=== PATIENT | male | born 1950 | race Caucasian/White ===

== ENCOUNTER 2017-11-29 07:12 | Day surgery (SDC) | payer MEDICARE, SELFPAY ==
[2017-11-29 07:46] VITALS: BP 140/77; PULSE 57; RESP 15; TEMP 36; O2SAT 100; BMI 27.0
[2017-11-29] MEDS: PROPARACAINE 0.5% OPHTH SOL 2 DROPS EYE-OP (07:56)
[2017-11-29] MEDS: CATARACT EYE COMPOUND (10 DROPS/SYRINGE) 3 DROPS EYE-OP (07:57)
--- NOTE | 2017-11-29 09:12 | PM.PREOP ---
Pre-operative Note Interval Note Changes: No
--- NOTE | 2017-11-29 09:12 | PM.OP.1 ---
Operative Date/Time/Diagnoses Pre-op diagnosis: Nuclear cataract right eye Procedure & Clinicians Procedure: Cataract Surgery Same procedure as scheduled: Yes Surgeon: Roberto Quigley Anesthesia Type: MAC +/- and Sedation Operative Notes Procedure in detail: Patient brought to the operating suite. Tetracaine drops placed in the right eye. Marking instrument was used to tristan the verticle and horizontal meridian. Patient was prepped and draped in sterile manner. Wire lid speculum was placed in the eye. marking instrument was used to tristan the 90 degree meridian. Betadine drops were placed on the eye. This was irrigated. Lidocaine jelly was placed on the eye. A paracentesis port was created with a side-port blade. 0.1 mL 1% preservative free lidocaine was injected into the anterior chamber. The anterior chamber was deepened with viscoelastic. 2.6 mm keratome was used to create a temporal clear corneal incision. Cystotome and Utrata forceps were used to create continuous tear capsulorrhexis. Balanced salt solution was used to hydro dissect the nucleus. The phacoemulsification handpiece was inserted and the nucleus was removed using the stop and chop technique. The irrigation aspiration handpiece was inserted and the remaining cortex was removed. Anterior chamber was deepened with viscoelastic. An Prince [id number] intraocular lens with a power of 10.5 was injected into the capsular bag. Irrigation aspiration handpiece was inserted and the remaining viscoelastic was removed. The lens was rotated to the 90 degree meridian. Incision was hydrated with balanced salt solution and found to be leak free with pressure with Weck-Faith sponges. 0.1 mL Vigamox injected anterior chamber. 0.3 mL Kenalog 10 mg was injected subconjunctivally. Lid speculum was removed. The patient left the operating room in excellent condition. Complications: none Condition: stable Disposition: same day surgery
--- NOTE | 2017-11-29 09:13 | P.OP.PRE_ITS ---
Pre-operative Note Interval Note Changes: No
[2017-11-29] MEDS: PHENYLEPHRINE/LIDOCAINE VIAL (OR) 0.2 ML EYE-OP (09:26)
[2017-11-29] MEDS: LIDOCAINE JELLY 2% 5 ML 1 APPLIC TOP (09:27)
[2017-11-29] MEDS: TRIAMCINOLONE 50 MG/5 ML VIAL INJ (09:27)
[2017-11-29] MEDS: MOXIFLOXACIN OPHTH DROPS 3 ML BOTTLE 2 DROPS INJ (09:27)
[2017-11-29] MEDS: CHONDROIDTIN/SOD HYALURONATE 1.05 ML SYRINGE INTRAOCULA (09:27)
[2017-11-29] MEDS: BALANCED SALT IRRIG SOLN NO.2 500 ML, EPINEPHrine 1 MG IRR (09:28)
[2017-11-29] MEDS: TETRACAINE 0.5% OPHTH DROPS 15 ML 2 DROPS EYE-RIGHT (09:28)
[2017-11-29 09:51] VITALS: BP 111/67; PULSE 51; RESP 16; TEMP 36.3; O2SAT 99
== END 2017-11-29 09:57 | disposition home or self-care (01) ==
LOC: OR 07:15
PROVIDERS: Family Provider Family Medicine; PCP Family Medicine; Visit Provider Ophthalmology
DX: H25.11 Age-related nuclear cataract, right eye (principal)
CPT/HCPCS: J0171; J2250; J3010; J3301; V2787

== ENCOUNTER 2017-12-13 08:25 | Day surgery (SDC) | payer MEDICARE, SELFPAY ==
[2017-12-13] MEDS: PROPARACAINE 0.5% OPHTH SOL 2 DROPS EYE-OP (08:52)
[2017-12-13 08:55] VITALS: BP 143/78; PULSE 43; RESP 16; TEMP 36.6; O2SAT 100; BMI 27.0
[2017-12-13] MEDS: CATARACT EYE COMPOUND (10 DROPS/SYRINGE) 3 DROPS EYE-OP (09:00)
--- NOTE | 2017-12-13 09:47 | P.OP.PRE_ITS ---
Pre-operative Note Interval Note Changes: No
--- NOTE | 2017-12-13 09:47 | PM.PREOP ---
Pre-operative Note Interval Note Changes: No
--- NOTE | 2017-12-13 09:47 | PM.OP.1 ---
Operative Date/Time/Diagnoses Pre-op diagnosis: Nuclear Cataract Left eye Post-op diagnosis: same Procedure & Clinicians Surgeon: Roberto Quigley Anesthesia Type: MAC +/- and Sedation Operative Notes Procedure in detail: Patient brought to the operating suite. Tetracaine drops placed in the left eye. The marking instrument was used to tristan the verticle and horizontal meridian. Patient was prepped and draped in sterile manner. Wire lid speculum was placed in the eye. The marking instrument was used to tristan the 80 degree meridian. Betadine drops were placed on the eye. This was irrigated. Lidocaine jelly was placed on the eye. A paracentesis port was created with a side-port blade. 0.1 mL 1% preservative free lidocaine was injected into the anterior chamber. The anterior chamber was deepened with viscoelastic. 2.6 mm keratome was used to create a temporal clear corneal incision. Cystotome and Utrata forceps were used to create continuous tear capsulorrhexis. Balanced salt solution was used to hydro dissect the nucleus. The phacoemulsification handpiece was inserted and the nucleus was removed using the stop and chop technique. The irrigation aspiration handpiece was inserted and the remaining cortex was removed. Anterior chamber was deepened with viscoelastic. An Prince [id number] intraocular lens with a power of 11.5 was injected into the capsular bag. Irrigation aspiration handpiece was inserted and the remaining viscoelastic was removed. The lens was rotated to the 80 degree meridian. Incision was hydrated with balanced salt solution and found to be leak free with pressure with Weck-Faith sponges. 0.1 mL Vigamox injected anterior chamber. 0.3 mL Kenalog 10 mg was injected subconjunctivally. Lid speculum was removed. The patient left the operating room in excellent condition. Complications: none Condition: stable Disposition: same day surgery
[2017-12-13] MEDS: LIDOCAINE JELLY 2% 5 ML 1 APPLIC TOP (09:56)
[2017-12-13] MEDS: CHONDROIDTIN/SOD HYALURONATE 1.05 ML SYRINGE INTRAOCULA (09:56)
[2017-12-13] MEDS: PHENYLEPHRINE/LIDOCAINE VIAL (OR) 0.2 ML EYE-OP (09:57)
[2017-12-13] MEDS: TETRACAINE 0.5% OPHTH DROPS 15 ML 2 DROPS EYE-LEFT (09:57)
[2017-12-13] MEDS: MOXIFLOXACIN OPHTH DROPS 3 ML BOTTLE 2 DROPS INJ (09:57)
[2017-12-13] MEDS: TRIAMCINOLONE 50 MG/5 ML VIAL INJ (09:58)
[2017-12-13] MEDS: BALANCED SALT IRRIG SOLN NO.2 500 ML, EPINEPHrine 1 MG IRR (09:59)
[2017-12-13] MEDS: PROPARACAINE 0.5% OPHTH SOL 2 DROPS EYE-LEFT (10:00)
[2017-12-13 10:11] VITALS: BP 116/66; PULSE 45; RESP 16; TEMP 36; O2SAT 93
== END 2017-12-13 10:25 ==
PROVIDERS: PCP Family Medicine; Visit Provider Ophthalmology
DX: H25.12 Age-related nuclear cataract, left eye (principal)
CPT/HCPCS: J0171; J2250; J3010; J3301; V2787

== ENCOUNTER → 2019-11-23 09:12 | Outpatient (CLI) | payer MEDICARE, SELFPAY ==
[2019-11-24 21:52] LABS: COVID19 Sendout Not Detected (Not Detect)
== END ==
PROVIDERS: PCP Family Medicine; Visit Provider Physician Assistant
DX: Z01.812 Encounter for preprocedural laboratory examination (principal)
CPT/HCPCS: 87635

== ENCOUNTER 2019-11-26 14:06 | Day surgery (SDC) | payer MEDICARE, SELFPAY ==
--- NOTE | 2019-11-26 | PATH_ITS ---
[facility] Accession Number: [id number] . 01 Material submitted: . rectum - RECTAL POLYP 8 MM . 01 Clinical history: . SDC . 02 Diagnosis: Rectal Polyp, 8 mm, Biopsy: Hyperplastic polyp. Negative for dysplasia or malignancy. Additional step sections examined. MRV 11/29/2019 1314 Local . 02 Electronically signed: . Chuck Osuna MD, PhD, Pathologist NPI- [id number] . 01 Gross description: . The specimen is received in formalin, labeled rectal polyp and consists of three huitron-pink fragments of soft tissue, measuring 0.5 x 0.5 x 0.2 cm in aggregate. The specimen is entirely submitted in cassette A1. ([id number]) /[facility] 11/27/2019 1701 Local . 02 Pathologist provided ICD-10: K62.1 . 02 CPT . 917121 Performed at: 01 [facility] [address] [place] [address], [place], [place] [id number] MD Peter Jackson MD Phone: [phone] Performed at: 02 [facility] [address] [place], [place] [id number] MD Pamela Hoang MD Phone: [phone]
--- NOTE | 2019-11-26 12:49 | P.HP_ITS ---
History of Present Illness History of Present Illness Date Patient Seen: 11/26/19 Chief complaint: [facility] [place] Narrative: 68 Years Old Male comes in today for consideration of a screening colonoscopy. Has had 2-3 lifetime colonoscopies. Last colonoscopy report from 2008 states that he has a history of a colorectal polyp, pathology not available at time of dictation, patient cannot remember if this is true. Patient recalls that the colonoscopy occurred in [place]. Due for recall. There have been no lower GI symptoms suggesting disease such as change in bowel habits, bleeding, abdominal pain or anemia. He does have a significant family history of colon cancer. His father of colon cancer as well as both of his grandfathers. All of them had colon cancer after age 50. Patient is anticoagulated on Pradaxa secondary to atrial fibrillation, underwent successful ablation in 2013, has been rate controlled and anticoagulated since that time. Echo on 03/11/2014 revealed an ejection fraction of 55 to 60%. Overall health issues have been stable, including no major cardiac events for at least 6 weeks. Current Medications: 1) Flecainide Acetate 100 Mg Oral Tablet (Flecainide Acetate) .... Take one tablet by mouth every 12 hours, for heart rhythm control. 2) Pradaxa 150 Mg Oral Capsule (Dabigatran Etexilate Mesylate) .... Take one by mouth twice a day 3) Metoprolol Tartrate 25 Mg Oral Tablet (Metoprolol Tartrate) .... Take 1/2 tablet by mouth twice a day for blood pressure control. 4) Lisinopril 2.5 Mg Oral Tablet (Lisinopril) .... Take one by mouth every day 5) Pravastatin Sodium 40 Mg Oral Tablet (Pravastatin Sodium) .... Take 1 tablet by mouth once a day at bedtime, for cholesterol control. Allergies: No Known Drug Allergies Past Medical History: ATRIAL FIBRILLATION HYPERTENSION HYPERLIPIDEMIA HEARING LOSS, BILATERAL Ringing in the ears Ganglion cyst of left dorsal wrist PLANTAR FASCIITIS ) DJD of glenohumeral joint Back Pain EPICONDYLITIS, MEDIAL Strain of unspecified muscle, fascia and tendon at shoulder and upper arm level, left arm, initial encounter Past Surgical History: ablation L shoulder surgery nasal surgery Family History: Reviewed history from 05/09/2014 and no changes required: Father, PGF, MGF: Colon Cancer Mother: Diabetes Siblings: brother, colon polyps Social History: Reviewed history from 05/10/2014 and no changes required: Marital Status: Children: Occupation:Retired Household Members:spouse Richard Rey 09/20/50 Education: Alcohol drinks/day: 2/day Caffeine use/day: 1 Type of Exercise: rowing Exercise Times per Week: 7 Guns in home: yes Dental Care w/in 6 mos.: yes Sun Exposure: frequently Drug Use: never Patient History Family & Social History Social History: household members spouse Meds Home Medications and Allergies Home Medications Medication Instructions Recorded Confirmed Type metoprolol tartrate 50 mg PO BID #0 09/10/11 11/26/19 History dabigatran etexilate [Pradaxa] 150 mg PO BID 11/29/17 11/26/19 History lisinopril 20 mg PO DAILY 11/29/17 11/26/19 History pravastatin 20 mg PO DAILY 11/29/17 11/26/19 History Allergies Allergy/AdvReac Type Severity Reaction Status Date / Time No Known Drug Allergies Allergy Verified 11/26/19 14:45 Review of Systems Review of Systems ROS: Yes All systems reviewed with the patient and are negative except as otherwise documented Exam Narrative Exam Narrative: GENERAL: Alert and oriented, appearing stated age and in no acute distress. HEENT: Head normocephalic/atraumatic. Pupils equal, round, and reactive to light and accomodation. Extraocular muscles intact. Tympanic membranes clear. Nasal mucosa moist, septum midline. Oral mucosa moist, no lesions. Neck soft and supple, no lymphadenopathy. LUNGS: Clear to ausculation bilaterally, no wheezes, rhonchi or rales. CV: Normal S1 and S2 with regular rate and rhythm, no audible murmurs, rubs or gallops. ABDOMEN: Soft, non-tender, non-distended, no organomegaly. Positive bowel sounds. EXTREMITIES: No clubbing, cyanosis, or edema. NEURO: Cranial nerves II through XII grossly intact, no focal deficits. PSYCH: Alert and oriented x 3. SKIN: No concerning lesions. Assessment & Plan Assessment & Plan narrative: 1. History of colon polyps 2. Family history of colon cancer 3. Screening for colon cancer Plan for colonoscopy. The nature and character of the procedure as well as anticipated results were discussed. The possibility of not completing the procedure was also discussed. Possible complications including aspiration pneumonia, bleeding, perforation and reaction to medications either for sedation or preparation and missed lesions were discussed. Questions were answered and proceeding to the colonoscopy was elected. Informed consent signed. I sincerely appreciate the referral allowing me to participate in this patient's care. Please contact me with any questions or concerns. Patient is also anticoagulated, have coordinated care with cardiology and will have patient discontinue Pradaxa 48 hours prior to the procedure and restart 48 hours after procedure if there are no bleeding risks.
--- NOTE | 2019-11-26 12:50 | PM.OP.ENDO ---
Operative Date/Time/Diagnoses Date of procedure: 11/26/19 Procedure Notes SCOAP/Timeout: 3:28 p.m. Procedure in detail: ENDOSCOPIST: Jackie Marcial MD Sedation RN: Jessica Larose RN Sedation start time: 3:29 p.m. Sedation end time: 3:58 p.m. PROCEDURE: Colonoscopy with biopsy, cold INDICATIONS: 1. History of colon polyps 2. Family history of colon cancer 3. Screening for colon cancer 4. Anticoagulation management, on Pradaxa, has been held x 24 hours MEDICATION: Levsin 0.125 mg sublingual, incremental doses of Versed and fentanyl until appropriate level sedation achieved. ASA CLASS: 2 CECAL WITHDRAWAL TIME: 13 minutes COMPLICATIONS: None. EXTENT OF PROCEDURE: Cecum. QUALITY OF PREP: Good with portions of liquid stool. PROCEDURE: Prior to insertion of the colonoscope, a digital rectal examination was accomplished with circumferential palpation of the distal rectal mucosa without significant findings being noted. The high-definition colonoscope was passed into the rectum in the usual fashion and advanced over to the cecum without difficulty. The ileocecal valve, appendiceal stoma, and medial wall all could be inspected and no abnormalities were seen. ASCENDING COLON: As the colonoscope was withdrawn, care was taken to expose and inspect the haustral folds and no abnormalities were seen. HEPATIC FLEXURE: Normal, no polyps, diverticula or other abnormalities. TRANSVERSE COLON: Normal, no polyps, diverticula or other abnormalities. DESCENDING COLON: Severe diverticulosis, no polyps or other abnormalities. SIGMOID COLON: Severe diverticulosis, no polyps or other abnormalities RECTUM: An 8 mm polyp was seen and removed with cold biopsy forceps.. J maneuver was produced. There was no significant perianal disease. The J maneuver was broken. The remainder of the rectum was inspected and there was no external hemorrhoid disease. The scope was withdrawn. IMPRESSION: 1. Rectal polyp x1, 8 mm, removed with cold biopsy forceps 2. Diverticulosis, severe, left-sided PLAN: 1. Follow-up in clinic status post pathology results. The possibility of a missed lesion including a malignancy has been discussed with the patient previously. Potential alarm symptoms have been discussed and should be reported immediately. Post-procedure Follow up: weeks (2)
[2019-11-26 14:47] VITALS: BMI 29.0
[2019-11-26 14:53] VITALS: BP 131/83; PULSE 78; RESP 16; TEMP 36.4; O2SAT 98
[2019-11-26] MEDS: HYOSCYAMINE 0.125 MG TABLET PO (15:03)
[2019-11-26] MEDS: LACTATED RINGERS 1,000 ML 200 ML IV (15:04)
[2019-11-26] MEDS: MIDAZOLAM 5 MG/5 ML VIAL IV (15:29)
[2019-11-26] MEDS: fentaNYL 250 MCG/5 ML INJ IV (15:39)
[2019-11-26 16:02] VITALS: BP 115/74; PULSE 64; RESP 16; TEMP 36.4; O2SAT 98
[2019-11-26 16:07] VITALS: BP 146/97; PULSE 78; RESP 10; O2SAT 96
[2019-11-26 16:15] VITALS: BP 158/85; PULSE 61; RESP 17; TEMP 36; O2SAT 98
[2019-11-26 16:47] VITALS: BP 153/81; PULSE 61; RESP 17; TEMP 36.1; O2SAT 98
== END 2019-11-26 16:49 | disposition home or self-care (01) ==
PROVIDERS: PCP Family Medicine; Referring Provider Student in an Organized Health Care Education/Training Program; Visit Provider Student in an Organized Health Care Education/Training Program
PROC: 0DJD8ZZ Inspection of Lower Intestinal Tract, Via Natural or Artificial Opening Endoscopic (ICD-10-PCS; CPT 45378; principal; 2019-11-26 15:15)
DX: Z12.11 Encounter for screening for malignant neoplasm of colon (principal); Z80.0 Family history of malignant neoplasm of digestive organs; Z86.010 Personal history of colon polyps; Z79.01 Long term (current) use of anticoagulants; K57.30 Diverticulosis of large intestine without perforation or abscess without bleeding; K62.1 Rectal polyp
CPT/HCPCS: 45380; J2250; J3010

== ENCOUNTER → 2021-04-29 16:39 | Outpatient (CLI) | payer MEDICARE, SELFPAY ==
--- NOTE | 2021-04-29 16:42 | DI.RAD.S_ITS ---
PROCEDURE: XR KNEE RT 3V INDICATIONS: RIGHT KNEE PAIN TECHNIQUE: 3 views of the knee were acquired. COMPARISON: [facility], , KNEE 3V RIGHT, 03/06/2007, 11:22. FINDINGS: Bones: No acute fractures or dislocations. No suspicious bony lesions. Soft tissues: Small joint effusion. No suspicious soft tissue calcifications. IMPRESSION: No acute osseous abnormality. If the symptoms persist, consider cross sectional imaging such as MRI or CT for further assessment. Dictated by: Chuck Carrion M.D. on 04/29/2021 at 17:53 Approved by: Chuck Carrion M.D. on 04/29/2021 at 17:55
== END ==
PROVIDERS: PCP Family Medicine; Referring Provider Family Medicine; Visit Provider Family Medicine
DX: M25.561 Pain in right knee (principal)
CPT/HCPCS: 73562

== ENCOUNTER → 2021-05-16 09:45 | Outpatient (CLI) | payer MEDICARE, SELFPAY ==
--- NOTE | 2021-05-16 | DI.MRI.S_ITS ---
PROCEDURE: MR KNEE RT WO CON INDICATIONS: Pain in right knee TECHNIQUE: Noncontrast sagittal PD fast spin echo and T2 fast spin echo with fat saturation, sagittal 3-D FLASH with fat saturation; coronal T1 spin echo and PD fast spin echo with fat saturation, and axial PD fast spin echo with fat saturation through the knee. COMPARISON: [facility], CR, XR KNEE RT 3V, 04/29/2021, 16:36. FINDINGS: Image quality: Excellent. Menisci: There is complex tear of the body and posterior horn of the medial meniscus. There is horizontal tear versus intrasubstance degeneration of the anterior horn of the lateral meniscus. The meniscal root ligaments appear intact. Cruciate ligaments: The anterior cruciate ligament has striated appearance suggesting mucoid degeneration. Posterior cruciate ligament appears normal. Medial structures: The medial collateral ligament appears intact. The semimembranosus tendon insertions and meniscocapsular junction appear intact. Visualized portions of the pes anserinus tendons appear normal. No abnormal bursal fluid. Lateral structures: The lateral collateral ligament, long and short heads of the biceps femoris tendon appear intact. The popliteus tendon appears normal. Iliotibial band appears normal. Anterior structures: The quadriceps and patellar tendons appear intact. Patellar alignment is normal. No femoral trochlear dysplasia or ventral trochlear prominence. No edema in the infrapatellar fat pad. Bones and cartilage: No bone marrow contusions or fractures. There is chondromalacia with cartilage thinning and fibrillation, most pronounced in the medial femorotibial compartment where a full-thickness cartilage defect is noted in the weightbearing portion of medial femoral condyle (series 7, image 21). Joint space: There is small knee joint effusion. No Batres's cyst. Normal appearing synovial plicae are incidentally noted. IMPRESSION: 1. Complex tear of the body and posterior horn of the medial meniscus. 2. Horizontal tear versus intrasubstance degeneration involving the anterior horn of the lateral meniscus. 3. Mucoid degeneration of ACL. 4. 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 5. Small knee joint effusion. Dictated by: Sheridan Fleming M.D. on 05/18/2021 at 8:09 Approved by: Sheridan Fleming M.D. on 05/18/2021 at 8:18
== END ==
PROVIDERS: PCP Family Medicine; Referring Provider Family Medicine; Visit Provider Family Medicine
DX: S83.231A Complex tear of medial meniscus, current injury, right knee, initial encounter (principal); S83.281A Other tear of lateral meniscus, current injury, right knee, initial encounter; M94.261 Chondromalacia, right knee; M25.561 Pain in right knee; M25.461 Effusion, right knee
CPT/HCPCS: 73721

== ENCOUNTER → 2021-10-02 15:13 | Outpatient (CLI) | payer MEDICARE, SELFPAY ==
--- NOTE | 2021-10-02 | DI.US.S_ITS ---
PROCEDURE: US THYROID INDICATIONS: LUMP TECHNIQUE: Real-time scanning was performed of the thyroid gland, with image documentation. COMPARISON: None. FINDINGS: Right: Thyroid lobe measures 4.3 x 1.2 x 1.6 cm, and is homogeneous in echotexture. Left: Thyroid lobe measures 3.9 x 1.2 x 1.1 cm, and is homogenous in echotexture. Isthmus: 2.4 mm thick. IMPRESSION: Normal thyroid ultrasound, without thyroid nodules seen. ACR TI-RADS definitions and recommendations: TI-RADS 1 (benign): 0 points. FNA not needed. TI-RADS 2 (not suspicious): 2 points. FNA not needed. TI-RADS 3 (mildly suspicious): 3 points. * FNA if 2.5 cm or larger, follow up if 1.5 cm or larger (at 1, 3, and 5 years). TI-RADS 4 (moderately suspicious): 4-6 points. * FNA if 1.5 cm or larger, follow up if 1 cm or larger (at 1, 2, 3, and 5 years). TI-RADS 5 (highly suspicious): 7 points or more. * FNA if 1 cm or larger, follow up if 0.5 cm or larger (every year for 5 years). Dictated by: Seth Ramirez M.D. on 10/02/2021 at 14:56 Approved by: Seth Ramirez M.D. on 10/02/2021 at 14:57
--- NOTE | 2021-10-02 | DI.US.S_ITS ---
PROCEDURE: US ABDOMEN LIMITED INDICATIONS: ABDOMINAL WALL LUMP; POSSIBLE HERNIA TECHNIQUE: Real-time focused scanning was performed of the abdomen, with image documentation. COMPARISON: None. FINDINGS: Partially reducible fat containing ventral wall hernia corresponding to the area of interest. IMPRESSION: Fat containing ventral wall hernia. Dictated by: Adeel CODY Interpreted: Renata De Guzman MD on 10/02/2021 at 15:50 Transcribed by: ALVIN on 10/02/2021 at 15:51 Approved by: Renata De Guzman M.D. on 10/02/2021 at 17:29
== END ==
PROVIDERS: PCP Family Medicine; Referring Provider Family Medicine; Visit Provider Family Medicine
DX: E07.9 Disorder of thyroid, unspecified (principal); K43.9 Ventral hernia without obstruction or gangrene
CPT/HCPCS: 76536; 76705

== ENCOUNTER → 2022-09-03 08:06 | Outpatient (CLI) | payer MEDICARE, SELFPAY ==
--- NOTE | 2022-09-03 | DI.ECHO.S_ITS ---
[facility]---------+ [facility] +---------+ : : [address] : : : : [id number] : : : : Phone: [phone]+ Echocardiogram Report + + :Name: ANA LOZANO Study Date: 09/03/2022 Height: 68 in : :[facility] ReadingLocation: Weight: 180 lb : : Gender: Male BSA: 2.0 m2 : :: 1950 Age: 72 yrs BP: 170/107 mmHg: :Reason For Study: Paroxysmal Atrial Fibrillation : :Ordering Physician: Briana MENDEZformed By: Iris Bush : :Referring: VON MENDEZ : + + Interpretation Summary The ejection fraction is estimated to be 55-60%. Diastolic function could not be accurately assessed due to atrial fibrillation. The left atrium is moderately dilated. The right ventricle is normal in size and function. No significant valvular abnormalities. Pulmonary artery pressures cannot be estimated because of the lack of a measurable TR jet velocity. The ascending aorta is mildly enlarged, 4.0 cm. Procedure: A two-dimensional transthoracic echocardiogram with color flow and Doppler was performed. The study quality was technically adequate. There is no prior echocardiogram noted for this patient. The patient was in atrial fibrillation with heart rates between 70 bpm during the exam. Left Ventricle: The left ventricle is normal in size. The ejection fraction is estimated to be 55-60%. Diastolic function could not be accurately assessed due to atrial fibrillation. Right Ventricle: The right ventricle is normal in size and function. Atria: The left atrium is moderately dilated. Right atrial size is normal. There is no Doppler evidence for an interatrial shunt. Mitral Valve: The mitral valve is normal. There is no mitral valve stenosis. There is trace mitral regurgitation. Aortic Valve: The aortic valve is trileaflet. The aortic valve opens well. There is mild aortic valve sclerosis. There is no aortic valve stenosis. No aortic regurgitation is present. Tricuspid Valve: The tricuspid valve is normal. There is no tricuspid stenosis. There is trace tricuspid regurgitation. Pulmonary artery pressures cannot be estimated because of the lack of a measurable TR jet velocity. Pulmonic Valve: The pulmonic valve leaflets are thin and pliable; valve motion is normal. There is no pulmonic valvular stenosis. There is trace pulmonic regurgitation. Great Vessels: The aortic root is normal size. The ascending aorta is mildly enlarged. The pulmonary artery is normal size. The IVC is of normal diameter and collapses greater than 50% with a sniff. This suggests a low right atrial pressure of 3 mm Hg. Pericardium/ Pleura There is no pericardial effusion. There is no pleural effusion. MMode/2D Measurements & Calculations LVIDd: 4.4 cm LVOT diam: 2.0 cm LVIDs: 2.3 cm Ao root diam: 3.1 cm FS: 47.7 % asc Aorta Diam: 3.7 cm EPSS: 1.2 cm IVSd: 1.1 cm LVPWd: 1.2 cm LV mckinney. diameter/BSA (cm/m^2): 2.3 LV sys. diameter/BSA (cm/m^2): 1.2 LA A2 area: 24.9 cm2 RA long axis: 5.5 cm LA A4 area: 23.7 cm2 RA area: 15.2 cm2 LA length (vol): 6.3 cm RA vol: 35.4 ml LA vol: 79.3 ml RA : 18.1 ml/m2 LA vol index: 40.6 ml/m2 RVD1 (basal): 3.2 cm LVLs ap4: 5.4 cm LVLd ap2: 6.8 cm TAPSE_phl: 2.4 cm LVLs ap2: 6.2 cm Doppler Measurements & Calculations Ao V2 max: 105.0 cm/sec LVOT Max Mendoza: 49.9 cm/sec Ao V2 mean: 81.8 cm/sec LV V1 max P.00 mmHg Ao max P.0 mmHg LV V1 VTI: 10.2 cm Ao mean P.0 mmHg NAY(I,D): 1.4 cm2 Ao V2 VTI: 22.2 cm NAY(V,D): 1.5 cm2 sev ratio: 0.46 NAY indexed to BSA (cm^2/m^2): 0.74 SV(LVOT): 32.0 ml AV VR_phl: 0.48 NAY(VTI)/BSA_phl: 0.74 Reading Physician:04:22 PM
== END ==
PROVIDERS: PCP Family Medicine; Referring Provider Internal Medicine Cardiovascular Disease; Visit Provider Internal Medicine Cardiovascular Disease
DX: I48.0 Paroxysmal atrial fibrillation (principal); I35.8 Other nonrheumatic aortic valve disorders; I77.89 Other specified disorders of arteries and arterioles
CPT/HCPCS: 93306

== ENCOUNTER → 2022-11-03 11:16 | Outpatient (CLI) | payer MEDICARE, SELFPAY ==
[2022-11-03 11:59] LABS: Estimated Glomerular Filt Rate > 60 mL/min (>60)
--- NOTE | 2022-11-03 12:28 | DI.CT.S_ITS ---
PROCEDURE: CT ANGIO CHEST INDICATIONS: Paroxysmal atrial fibrillation TECHNIQUE: After the administration of intravenous contrast, 3 mm thick sections acquired from the pulmonary apices to the posterior costophrenic angles. 3-dimensional maximum intensity projection (MIP) coronal reformats were then acquired parallel to the pulmonary veins. For radiation dose reduction, the following was used: automated exposure control, adjustment of mA and/or kV according to patient size. COMPARISON: None. FINDINGS: Image quality: Excellent. Pulmonary veins: 4 pulmonary veins are identified. * Right superior pulmonary vein: 1 cm diameter, 1.6 cm from ostium to 1st order branch. * Right inferior pulmonary vein: 1.9 cm diameter, 1.4 cm from ostium to 1st order branch. * Left superior pulmonary vein: 1.1 cm diameter, 1.2 cm from ostium to 1st order branch. * Left inferior pulmonary vein: 1.7 cm diameter, 2.0 cm from ostium to 1st order branch. * Supernumerary pulmonary veins: none. Lungs and pleura: Lungs are clear. No pleural effusions or pneumothorax. Central and peripheral airways are patent. 2 mm solid nodule, right middle lobe (series 3, image 193). Mediastinum: Heart size is enlarged, without pericardial effusion. No mediastinal or hilar adenopathy. Thoracic aorta and pulmonary arteries are normal in caliber and enhancement. Esophagus is normal in caliber, without hiatal hernia. Hilar calcified lymph nodes. Bones and chest wall: No suspicious bony lesions. Ribs and thoracic spine appear intact throughout. No axillary or supraclavicular adenopathy. Thyroid gland is unremarkable . Abdomen: Fluid attenuating renal cyst on the right. IMPRESSION: Pulmonary vein measurements as above. 2 mm solid nodule in the right middle lobe. Consider 12 month follow-up if at high risk for developing lung cancer, per Fleischner Society guidelines. Dictated by: Carroll Gomez M.D. on 11/03/2022 at 14:23 Approved by: Carroll Gomez M.D. on 11/03/2022 at 14:28
== END ==
PROVIDERS: Radiology Diagnostic Radiology; PCP Family Medicine; Referring Provider Internal Medicine Cardiovascular Disease; Visit Provider Internal Medicine Cardiovascular Disease
DX: I48.0 Paroxysmal atrial fibrillation (principal); R91.1 Solitary pulmonary nodule
CPT/HCPCS: 36415; 71275; 82565

== ENCOUNTER → 2023-01-17 10:14 | Outpatient (CLI) | payer MEDICARE, SELFPAY ==
[2023-01-17 11:16] LABS: Add Manual Diff / Slide Review NO; Basophils Absolute Auto 0 /uL (0-100); Basophils Percent Auto 0.3 % (0-2); Eosinophils Absolute Auto 100 /uL (0-450); Eosinophils Percent Auto 0.8 % (2-4); Hematocrit 49.3 % (41-53); Hemoglobin 16.9 g/dL (13.5-17.5); Lymphocytes Absolute Auto 2100 /uL (1100-4500); Lymphocytes Percent Auto 28.1 % (25-40); Mean Corpuscular HGB Conc 34.4 % (30-36); Mean Corpuscular Volume 93.2 fL (80-100); Monocytes Absolute Auto 600 /uL (0-900); Monocytes Percent Auto 7.9 % (3-14); Neutrophils Absolute Auto 4600 /uL (1500-7000); Neutrophils Percent Auto 62.9 % (50-75); Platelet Count 198 X10^3/uL (150-400); Red Blood Cell Count 5.29 X10^6/uL (4.5-5.9); Red Cell Distribution Width 14.6 % (11.6-14.8); White Blood Cell Count 7.4 X10^3/uL (4.5-11.0)
[2023-01-17 12:12] LABS: BUN Creatinine Ratio 15.3 (6-22); Blood Urea Nitrogen 13 mg/dL (9-20); Calcium 9.8 mg/dL (8.4-10.2); Carbon Dioxide 31 mmol/L (22-32); Chloride 91 mmol/L (98-107); Estimated Glomerular Filt Rate > 60 mL/min (>60); Glucose 98 mg/dL (80-110); HEMOLYSIS < 15 (0-50); Potassium 4.7 mmol/L (3.4-5.1); Sodium 129 mmol/L (137-145)
== END ==
PROVIDERS: PCP Family Medicine; Referring Provider Internal Medicine Cardiovascular Disease; Visit Provider Internal Medicine Cardiovascular Disease
DX: I48.0 Paroxysmal atrial fibrillation (principal)
CPT/HCPCS: 36415; 80048; 85025

== ENCOUNTER 2023-03-02 06:56 | Day surgery (SDC) | payer MEDICARE, SELFPAY ==
[2023-02-22 14:16] VITALS: BMI 29.5
--- NOTE | 2023-03-01 10:07 | P.HP_ITS ---
History of Present Illness History of Present Illness Date Patient Seen: 03/02/23 Time Patient Seen: 08:19 Chief complaint: SDC Narrative: 73-year-old man with a symptomatic 10 cm reducible ventral hernia here for elective open repair. No interval changes in health. Pradaxa has been held for the past 4 days. [facility] Medical History Tinnitus of left ear Polycythemia Heart murmur Cardiomyopathy Persistent atrial fibrillation RBBB (right bundle branch block) PAF (paroxysmal atrial fibrillation) Hyperlipemia Hypertension Surgical History History of arthroscopy of left shoulder Hx of bilateral cataract extraction (01/2018) History of cardiac cath Social History household members: spouse Smoking Status: Former smoker alcohol intake: current Meds Home Medications and Allergies Home Medications Medication Instructions Recorded Confirmed Type dabigatran etexilate 75 mg capsule 20 mg PO DAILY 11/29/17 03/02/23 History (Pradaxa) cartilage 40 mg-collagen II 10 tab PO 11/10/21 01/13/23 History mg-boron 5 mg-hyaluronate 3.3 mg tablet ([facility]) lisinopril 2.5 mg tablet 2.5 mg PO DAILY 11/10/21 03/02/23 History metoprolol tartrate 25 mg tablet 12.5 mg PO BID 11/10/21 03/02/23 History tjdbbwsu-lgt-shgxp acid 0.4 1 tab PO DAILY 11/10/21 03/02/23 History mg-lycopene 300 mcg-lutein 250 mcg tablet (Centrum [facility]) pravastatin 40 mg tablet 40 mg PO BEDTIME 11/10/21 03/02/23 History Allergies Allergy/AdvReac Type Severity Reaction Status Date / Time flecainide AdvReac Developed Verified 02/22/23 15:10 Right Bundle Branch Block (RBBB) Exam Narrative Exam Narrative: General adult man alert oriented no acute distress Abdomen soft 10 cm reducible ventral hernia extending largely superior to the umbilicus marked with my initials. Assessment & Plan Assessment and plan (1) Ventral hernia: Qualifiers: Obstruction and gangrene presence: without obstruction or gangrene Qualified Code(s): K43.9 - Ventral hernia without obstruction or gangrene Status: Acute Assessment & Plan narrative: 73-year-old man with a symptomatic reducible 10 cm ventral hernia here for elective open repair. We reviewed the operation its risks benefits and alternatives. Following discussion his preference is to proceed. A written and verbal consent were obtained.
[2023-03-02] VITALS (16 sets, daily range): BP systolic 128–185; BP diastolic 78–116; PULSE 84–112; RESP 12–17; TEMP 36.2–36.8; O2SAT 93–100; BMI 28.5
[2023-03-02] MEDS: LACTATED RINGERS 1,000 ML 21 ML IV (07:39)
[2023-03-02] MEDS: CEFAZOLIN 2 GM/100 ML PREMIX 100 ML IV (08:51)
--- NOTE | 2023-03-02 09:07 | SUR.OPER ---
Supine on padded OR bed, head on pillow, arms secured on padded arm boards at <90 degrees abduction, legs uncrossed, safety belt at thigh, tape over blanket over lower legs.
[2023-03-02] MEDS: BUPIVACAINE 0.25% (PF) VIAL 30 ML INJ (09:14)
--- NOTE | 2023-03-02 10:33 | P.OP_ITS ---
Operative Date/Time/Diagnoses Date of procedure: 03/02/23 Time of procedure: 10:34 Pre-op diagnosis: Ventral hernia 8 cm Post-op diagnosis: same Procedure & Clinicians Procedure: Open ventral hernia repair 8 cm Same procedure as scheduled: Yes Indications: Symptomatic reducible ventral hernia Surgeon: Kt Harrell Anesthesia Type: General Operative Notes Findings: 8 cm ventral hernia containing omentum Specimen(s): none sent Tourniquet time (min): 20 Procedure in detail: Patient was brought to the operating room placed supine on the table. Bilateral lower extremity compression devices were applied. They received 2 g of Ancef prior to skin incision. Prepped and draped in sterile fashion, ioban was placed. Time-out was performed. A midline incision was made around the umbilicus with a knife. The subcutaneous tissue was divided to expose the midline fascia. The fascia had a 8 cm defect extending from the approximally 5 cm above the umbilicus to several cm below. The fascia was grasped elevated and sharply opened. There was minimal adhesive tissue within the abdomen. A towel was then placed over the visceral content to protect it out of harms way. Hernia sac was excised. The retromuscular space was entered by incising the posterior rectus sheath approximately 1 cm from its edge. The retromuscular plane was developed using electrocautery with care to protect the neurovascular structures. The retrorectus space was developed in the same fashion on the contralateral side. The spaces were then connected superiorly and inferiorly. The posterior sheath was then closed with 2-0 vicryl. I selected a Bard 15 cm polypropelene soft tissue mesh placed in the retro rectus space with the anti- adhesive surface towards the abdomen. The mesh was anchored with interrupted Ethibond in transfascial fashion in in multiple locations using the jaymie tee device such that the mesh lay under physiologic tension. The anterior sheath/ linea alba was then closed with a running Vicryl without tension. Hemostasis was checked. The subcutaneous tissue was then reapproximated using Vicryl skin closed with running 4-0 Monocryl followed by the application of Dermabond. Patient emerged from anesthesia was extubated and transferred to recovery room in stable condition. Complications: none Post-operative Condition: stable Disposition: same day surgery
[2023-03-02] MEDS: HYDROMORPHONE 1 MG INJ IV (10:44)
[2023-03-02] MEDS: ACETAMINOPHEN IV 1,000 MG/100 ML VIAL 400 MG IV (10:56)
[2023-03-02] MEDS: OXYCODONE IR 5 MG TABLET PO ×2 (11:02→11:37)
--- NOTE | 2023-03-02 12:39 | SUR.PHASEII ---
Pt diaphoretic when up to wheelchair. Vital signs WNL. Up to BR, voided. Then to WC. Pt pale and diaphoretic. Assisted back to bed to rest. VSS. Juice given.
== END 2023-03-02 13:56 | disposition home or self-care (01) ==
PROVIDERS: PCP Family Medicine; Referring Provider Surgery; Visit Provider Surgery
PROC: (CPT 49593; principal; 2023-03-02 08:15)
DX: K43.9 Ventral hernia without obstruction or gangrene (principal)
CPT/HCPCS: 49593; 82962; 85610; 93005; J0136; J0360; J0690; J1100; J1170; J2250; J2405; J2704; J3010; J3490

== ENCOUNTER → 2023-03-31 10:17 | Outpatient (CLI) | payer MEDICARE, SELFPAY ==
[2023-03-31 10:56] LABS: Add Manual Diff / Slide Review NO; Basophils Absolute Auto 0 /uL (0-100); Basophils Percent Auto 0.4 % (0-2); Eosinophils Absolute Auto 400 /uL (0-450); Eosinophils Percent Auto 4.2 % (2-4); Hematocrit 48.3 % (41-53); Hemoglobin 16.7 g/dL (13.5-17.5); Lymphocytes Absolute Auto 2400 /uL (1100-4500); Lymphocytes Percent Auto 23.2 % (25-40); Mean Corpuscular HGB Conc 34.5 % (30-36); Mean Corpuscular Hemoglobin 32.4 PG (26-34); Mean Corpuscular Volume 93.8 fL (80-100); Monocytes Absolute Auto 900 /uL (0-900); Monocytes Percent Auto 9.1 % (3-14); Neutrophils Absolute Auto 6600 /uL (1500-7000); Neutrophils Percent Auto 63.1 % (50-75); Platelet Count 206 X10^3/uL (150-400); Red Blood Cell Count 5.15 X10^6/uL (4.5-5.9); Red Cell Distribution Width 13.7 % (11.6-14.8); White Blood Cell Count 10.5 X10^3/uL (4.5-11.0)
== END ==
PROVIDERS: PCP Family Medicine; Referring Provider Surgery; Visit Provider Surgery
DX: Z48.89 Encounter for other specified surgical aftercare (principal)
CPT/HCPCS: 36415; 85025

== ENCOUNTER → 2023-04-22 10:06 | Outpatient (CLI) | payer MEDICARE, SELFPAY ==
[2023-04-22 11:49] LABS: BUN Creatinine Ratio 16.1 (6-22); Blood Urea Nitrogen 14 mg/dL (9-20); Calcium 9.9 mg/dL (8.4-10.2); Carbon Dioxide 34 mmol/L (22-32); Chloride 95 mmol/L (98-107); Estimated Glomerular Filt Rate > 60 mL/min (>60); Glucose 102 mg/dL (80-110); HEMOLYSIS < 15 (0-50); Potassium 4.4 mmol/L (3.4-5.1); Sodium 133 mmol/L (137-145)
== END ==
PROVIDERS: PCP Family Medicine; Referring Provider Surgery; Visit Provider Surgery
DX: K43.9 Ventral hernia without obstruction or gangrene (principal); Z48.89 Encounter for other specified surgical aftercare
CPT/HCPCS: 36415; 80048

== ENCOUNTER → 2023-04-29 14:05 | Outpatient (CLI) | payer MEDICARE, SELFPAY ==
--- NOTE | 2023-04-29 14:07 | DI.CT.S_ITS ---
PROCEDURE: CT ABDOMEN PELVIS W CON INDICATIONS: abdominal pain sp ventral hernia repair TECHNIQUE: After the administration of intravenous contrast, axial sections acquired from the lung bases to the pubic symphysis. Coronal and sagittal reformats were performed. For radiation dose reduction, the following was used: automated exposure control, adjustment of mA and/or kV according to patient size. COMPARISON: [facility], CT, CT ANGIO CHEST, 11/03/2022, 12:20. FINDINGS: Image quality: Diagnostic. Lower Chest: No significant findings. Right lower lobe pulmonary nodule measuring 0.4 cm. ABDOMEN: Liver: No solid mass. Hepatic steatosis. Calcified granuloma. Gallbladder: No radiopaque gallstones or wall thickening. Biliary ducts: No biliary dilation. Pancreas: No ductal dilation. Possible cyst in the body of the pancreas measuring at 0.6 cm, (2/23). Spleen: Size is within normal limits. Calcified granulomas. Adrenal Glands: No adrenal nodules. Kidneys and Ureters: No hydronephrosis. No solid mass. Benign cyst in the right kidney. No complex renal cystic lesion which requires follow up. Stomach and Bowel: Extensive diverticulosis. Normal appendix. No small bowel obstruction. Stomach is within normal limits. Peritoneum: No abnormal intraperitoneal fluid. No free air. Ventral Wall: Large ventral abdominal wall hernia containing small bowel. The hernia neck measures approximately 7.1 cm, (2/49). No fluid in the hernia sac. Possible prior mesh. Abdominal Nodes: No retroperitoneal or mesenteric adenopathy by size criteria. Vessels: Aorta and inferior vena cava are normal in size. Extensive plaque. PELVIS: Pelvic Organs: Prostatomegaly. Bladder: No stone. Pelvic Nodes: No enlarged lymph nodes. Miscellaneous: Fat containing left inguinal hernia. Bones: No aggressive osseous abnormality. IMPRESSION: 1. Large ventral abdominal wall hernia containing small bowel. 2. No bowel obstruction. No free fluid. 3. Diverticulosis. 4. Hepatic steatosis. Dictated by: César Schumacher M.D. on 04/29/2023 at 16:27 Approved by: César Schumacher M.D. on 04/29/2023 at 16:42
== END ==
PROVIDERS: PCP Family Medicine; Referring Provider Surgery; Visit Provider Surgery
DX: Z48.89 Encounter for other specified surgical aftercare (principal); K43.6 Other and unspecified ventral hernia with obstruction, without gangrene; K57.90 Diverticulosis of intestine, part unspecified, without perforation or abscess without bleeding; K76.0 Fatty (change of) liver, not elsewhere classified; R91.1 Solitary pulmonary nodule; N28.1 Cyst of kidney, acquired; N40.0 Benign prostatic hyperplasia without lower urinary tract symptoms; K40.90 Unilateral inguinal hernia, without obstruction or gangrene, not specified as recurrent; I70.0 Atherosclerosis of aorta
CPT/HCPCS: 74177; Q9967

== ENCOUNTER → 2023-09-26 10:35 | Outpatient (CLI) | payer MEDICARE, SELFPAY ==
[2023-09-26 11:50] LABS: Add Manual Diff / Slide Review NO; Basophils Absolute Auto 0 /uL (0-100); Basophils Percent Auto 0.5 % (0-2); Eosinophils Absolute Auto 100 /uL (0-450); Eosinophils Percent Auto 1.1 % (2-4); Hematocrit 50.4 % (41-53); Hemoglobin 17.2 g/dL (13.5-17.5); Lymphocytes Absolute Auto 2100 /uL (1100-4500); Lymphocytes Percent Auto 24.5 % (25-40); Mean Corpuscular Hemoglobin 31.9 PG (26-34); Mean Corpuscular Volume 93.8 fL (80-100); Monocytes Absolute Auto 800 /uL (0-900); Monocytes Percent Auto 9.3 % (3-14); Neutrophils Absolute Auto 5600 /uL (1500-7000); Neutrophils Percent Auto 64.6 % (50-75); Platelet Count 187 X10^3/uL (150-400); Red Blood Cell Count 5.38 X10^6/uL (4.5-5.9); Red Cell Distribution Width 14.8 % (11.6-14.8); White Blood Cell Count 8.7 X10^3/uL (4.5-11.0)
[2023-09-26 12:18] LABS: BUN Creatinine Ratio 13.9 (6-22); Blood Urea Nitrogen 11 mg/dL (9-20); Calcium 9.9 mg/dL (8.4-10.2); Carbon Dioxide 26 mmol/L (22-32); Chloride 99 mmol/L (98-107); Estimated Glomerular Filt Rate > 60 mL/min (>60); Glucose 98 mg/dL (80-110); Potassium 4.6 mmol/L (3.4-5.1); Sodium 132 mmol/L (137-145)
[2023-09-26 12:24] LABS: HEMOLYSIS 61 (0-50)
== END ==
PROVIDERS: PCP Family Medicine; Referring Provider Internal Medicine Cardiovascular Disease; Visit Provider Internal Medicine Cardiovascular Disease
DX: I48.0 Paroxysmal atrial fibrillation (principal)
CPT/HCPCS: 36415; 80048; 85025

== ENCOUNTER → 2024-01-17 14:39 | Outpatient (CLI) | payer MEDICARE, SELFPAY ==
[2024-01-17 15:55] LABS: BUN Creatinine Ratio 16.8 (6-22); Blood Urea Nitrogen 16 mg/dL (9-20); Carbon Dioxide 31 mmol/L (22-32); Chloride 98 mmol/L (98-107); Estimated Glomerular Filt Rate > 60 mL/min (>60); Glucose 98 mg/dL (80-110); HEMOLYSIS 16 (0-50); Potassium 4.3 mmol/L (3.4-5.1); Sodium 133 mmol/L (137-145)
== END ==
PROVIDERS: PCP Family Medicine; Referring Provider Nurse Practitioner Family; Visit Provider Nurse Practitioner Family
DX: I48.0 Paroxysmal atrial fibrillation (principal)
CPT/HCPCS: 36415; 80048

== ENCOUNTER → 2024-01-19 07:25 | Outpatient (CLI) | payer MEDICARE, SELFPAY ==
--- NOTE | 2024-01-19 | DI.NM.S_ITS ---
PROCEDURE: NM MELONIE PERF SPECT R&S PHARM Rest and pharmacological stress myocardial perfusion SPECT with gated imaging and ejection fraction RADIOPHARMACEUTICAL: 12.3 mCi Tc-99m tetrafosmin IV at rest and 25 mCi Tc-99m tetrafosmin IV at peak effect of pharmacological stress. [id number] was performed. INDICATIONS: Paroxysmal atrial fibrillation PQRS ATTESTATIONS: Measure 322 - Is this imaging test primarily performed on a low-risk surgery patient for preoperative evaluation within 30 days preceding their low-risk non-cardiac surgery? Low-risk surgery is defined as cardiac or myocardial infarction less than 1%, including (but not limited to) endoscopic procedures, superficial procedures, cataract surgery, and excisional breast surgery: Answer: No Measure 323 - Is this imaging test performed primarily for the monitoring of an asymptomatic patient who had percutaneous coronary intervention on the visit date or within 2 years of the visit date? Answer: No Measure 324 - Is this imaging test performed primarily for the initial detection and risk assessment on an asymptomatic, low coronary heart disease patient? Low CHD risk definition = clinicians should consider the maximum number of available patient factors used to estimate risk based on Somers (ATP III criteria), typically age, gender, diabetes, smoking status, and use of blood pressure medication, and integrate age appropriate estimates for missing elements, such as LDL or standard blood pressure. Answer: No TECHNIQUE: Radiopharmaceutical was injected at peak stress test, and also at rest. SPECT images were obtained. SPECT myocardial perfusion images were displayed in short axis, horizontal long axis, and vertical long axis views. Gated images were reviewed using [employer] software. COMPARISON: None. CARDIAC STRESS: A pharmacologic stress test was performed under the supervision of an attending staff, using an infusion of 0.4 mg. Hemodynamic data: There is normal blood pressure and heart rate response to pharmacologic stress. Symptoms: The patient denied anginal chest pain. Aminophylline: No EKG: No diagnostic changes of ischemia; no ectopy. FINDINGS: Raw data: There is good myocardial uptake of radiotracer. No significant motion artifacts. Ngss-jo-meupz ratio is 0.23 (normal is less than 0.38 for tetrafosmin tracer). Left ventricle function: Gated images demonstrate normal left ventricular wall thickening. No segmental wall motion abnormalities. No transient ischemic dilation; TID is 0.67 (normal less than 1.3). Left ventricle resting end diastolic volume is 114 mL. Left ventricle stress ejection fraction is 66%; normal range is above 45%. Myocardial perfusion: There were no perfusion defects noted in the resting images. There is a small area of slight hypoperfusion in the mid anterior segment of the stress images noted in the short axis view only. No perfusion defects noted in the vertical long axis and horizontal long axis views of the stress images. Therefore, this most likely represents an artifact. IMPRESSION: Negative Lexiscan myocardial perfusion scan for ischemia and infarction. Dictated by: Angel Sanders M.D. on 01/19/2024 at 16:45 Approved by: Angel Sanders M.D. on 01/19/2024 at 16:48
== END ==
PROVIDERS: PCP Family Medicine; Referring Provider Nurse Practitioner Family; Visit Provider Nurse Practitioner Family
DX: I48.0 Paroxysmal atrial fibrillation (principal); I42.9 Cardiomyopathy, unspecified
CPT/HCPCS: 78452; 93017; A9502; J2785

== ENCOUNTER → 2024-04-02 12:16 | Outpatient (CLI) | payer MEDICARE, SELFPAY ==
--- NOTE | 2024-04-02 12:17 | DI.ECHO.S_ITS ---
[facility] : : [address] : [place] : : [id number] : : Phone: [phone] Echocardiogram Report + + :Name: ANA LOZANO Study Date: 04/02/2024 Height: 68 in : :Hospital ReadingLocation: Weight: 200 lb : : Gender: Male BSA: 2.0 m2 : :: 1950 Age: 74 yrs BP: 153/113 mmHg: :Reason For Study: PAROXYSMAL ATRIAL FIBRILLATION, : :CARDIOMYOPATHY : :Ordering Physician: LORY, : :ETELVINA Performed By: Carlos Greenwood : :Referring: ETELVINA HENLEY : + + Interpretation Summary The patient was in a tachycardic rhythm during the exam. The ejection fraction is estimated to be 50-55%. Diastolic function could not be accurately assessed due to tachycardia. The right ventricle is normal in size and function. No significant valvular abnormality. The inferior vena cava was not visualized. Procedure: A two-dimensional transthoracic echocardiogram with color flow and Doppler was performed. The study quality was technically good. Comparison is made with the echocardiogram of 09/03/2022. The patient was in a tachycardic rhythm during the exam. Left Ventricle: The left ventricle is normal in size. Left ventricular wall thickness is mildly increased. There is no ventricular septal defect visualized. The ejection fraction is estimated to be 50-55%. There are no obvious focal wall motion abnormalities noted but poor endocardial definition reduces the sensitivity for the detection of such. Diastolic function could not be accurately assessed due to tachycardia. Right Ventricle: The right ventricle is normal in size and function. Atria: The left atrial size is normal. The right atrium is mildly dilated. There is no Doppler evidence for an interatrial shunt. Mitral Valve: The mitral valve leaflets appear normal. There is no evidence of stenosis, fluttering, or prolapse. There is no mitral regurgitation noted. Aortic Valve: The aortic valve is trileaflet. The aortic valve is mildly calcified. The aortic valve opens well. There is no aortic valve stenosis. No aortic regurgitation is present. Tricuspid Valve: The tricuspid valve leaflets are thin and pliable. There is a trace or physiologic amount of tricuspid regurgitation. Pulmonic Valve: The pulmonic valve leaflets are thin and pliable; valve motion is normal. There is no pulmonic valvular regurgitation. Great Vessels: The aortic root is normal size. The ascending aorta is mildly enlarged. The pulmonary artery is normal size. The inferior vena cava was not visualized. Pericardium/ Pleura There is no pericardial effusion. MMode/2D Measurements & Calculations LVIDd: 4.6 cm LVOT diam: 2.4 cm LVIDs: 3.3 cm Ao root diam: 3.4 cm FS: 29.0 % asc Aorta Diam: 4.0 cm EPSS: 1.1 cm IVSd: 1.1 cm LVPWd: 1.1 cm LV mckinney. diameter/BSA (cm/m^2): 2.3 LV sys. diameter/BSA (cm/m^2): 1.6 LA A2 area: 25.9 cm2 RA long axis: 5.1 cm LA A4 area: 19.6 cm2 RA area: 18.8 cm2 LA length (vol): 6.3 cm RA vol: 58.4 ml LA vol: 68.7 ml RA : 28.6 ml/m2 LA vol index: 33.6 ml/m2 RVD1 (basal): 3.4 cm RVD2 (mid): 2.5 cm TAPSE: 1.9 cm Doppler Measurements & Calculations Ao V2 max: 125.5 cm/sec LVOT Max Mendoza: 77.4 cm/sec Ao V2 mean: 99.9 cm/sec LV V1 max P.4 mmHg Ao max P.3 mmHg LV V1 VTI: 13.4 cm Ao mean P.1 mmHg NAY(I,D): 3.0 cm2 Ao V2 VTI: 20.5 cm NAY(V,D): 2.8 cm2 sev ratio: 0.65 NAY indexed to BSA (cm^2/m^2): 1.5 MV E max mendoza: 77.5 cm/sec TR max mendoza: 9.2 cm/sec MV A max mendoza: 2.5 cm/sec TR max P.03 mmHg MV E/A: 31.1 PA V2 max: 55.3 cm/sec Med Peak E' Mendoza: 10.5 cm/sec PA V2 mean: 38.4 cm/sec E/E' med: 7.4 PA mean P.65 mmHg Lat Peak E' Mendoza: 12.8 cm/sec PA pr(Accel): 40.5 mmHg E/E' lat: 6.0 E/e' average: 6.7 MV dec time: 0.09 sec SV(LVOT): 61.8 ml Reading Physician:10:00 AM
== END ==
PROVIDERS: PCP Family Medicine; Referring Provider Nurse Practitioner Family; Visit Provider Nurse Practitioner Family
DX: I48.0 Paroxysmal atrial fibrillation (principal); I42.9 Cardiomyopathy, unspecified; I77.89 Other specified disorders of arteries and arterioles
CPT/HCPCS: 93306

== ENCOUNTER → 2024-04-13 14:32 | Outpatient (CLI) | payer MEDICARE, SELFPAY ==
[2024-04-13 15:27] LABS: Add Manual Diff / Slide Review NO; Basophils Absolute Auto 100 /uL (0-100); Basophils Percent Auto 0.7 % (0-2); Eosinophils Absolute Auto 100 /uL (0-450); Eosinophils Percent Auto 0.8 % (2-4); Hemoglobin 16.5 g/dL (13.5-17.5); Lymphocytes Absolute Auto 1500 /uL (1100-4500); Lymphocytes Percent Auto 19.2 % (25-40); Mean Corpuscular HGB Conc 34.4 % (30-36); Monocytes Absolute Auto 600 /uL (0-900); Monocytes Percent Auto 7.5 % (3-14); Neutrophils Absolute Auto 5600 /uL (1500-7000); Neutrophils Percent Auto 71.8 % (50-75); Platelet Count 211 X10^3/uL (150-400); Red Blood Cell Count 5.16 X10^6/uL (4.5-5.9); Red Cell Distribution Width 14.6 % (11.6-14.8); White Blood Cell Count 7.8 X10^3/uL (4.5-11.0)
[2024-04-13 15:45] LABS: BUN Creatinine Ratio 14.3 (6-22); Blood Urea Nitrogen 15 mg/dL (9-20); Calcium 9.3 mg/dL (8.4-10.2); Carbon Dioxide 25 mmol/L (22-32); Chloride 101 mmol/L (98-107); Estimated Glomerular Filt Rate > 60 mL/min (>60); Glucose 85 mg/dL (80-110); HEMOLYSIS 21 (0-50); Potassium 4.5 mmol/L (3.4-5.1); Sodium 136 mmol/L (137-145)
[2024-04-13 16:40] LABS: Free T4, Direct Thyroxine 0.62 ng/dL (0.78-2.19)
== END ==
PROVIDERS: PCP Family Medicine; Referring Provider Nurse Practitioner Family; Visit Provider Nurse Practitioner Family
DX: I48.0 Paroxysmal atrial fibrillation (principal)
CPT/HCPCS: 36415; 80048; 84439; 84443; 85025

== ENCOUNTER → 2024-07-17 10:45 | Outpatient (CLI) | payer MEDICARE, SELFPAY ==
[2024-07-17 15:25] LABS: Free T4, Direct Thyroxine 0.62 ng/dL (0.78-2.19)
== END ==
PROVIDERS: PCP Family Medicine; Referring Provider Internal Medicine Cardiovascular Disease; Visit Provider Internal Medicine Cardiovascular Disease
DX: I48.92 Unspecified atrial flutter (principal); Z79.899 Other long term (current) drug therapy; Z92.29 Personal history of other drug therapy
CPT/HCPCS: 36415; 84439; 84443

== ENCOUNTER → 2024-08-01 09:34 | Outpatient (CLI) | payer MEDICARE, SELFPAY | LOC: RESP 09:36 | PROVIDERS: PCP Family Medicine; Referring Provider Physician Assistant; Visit Provider Physician Assistant | DX: I48.92 Unspecified atrial flutter (principal); Z79.899 Other long term (current) drug therapy; Z87.891 Personal history of nicotine dependence | CPT/HCPCS: 94060; 94726; 94729 ==

== ENCOUNTER → 2024-12-19 10:31 | Outpatient (CLI) | payer MEDICARE, SELFPAY ==
--- NOTE | 2024-12-19 10:33 | DI.CT.S_ITS ---
PROCEDURE: CT CHEST WO CON
== END ==
LOC: CT 10:32
PROVIDERS: PCP Family Medicine; Referring Provider Family Medicine; Visit Provider Family Medicine
DX: R91.1 Solitary pulmonary nodule (principal); I25.10 Atherosclerotic heart disease of native coronary artery without angina pectoris
CPT/HCPCS: 71250